=== PATIENT | female | born 1950 | race Caucasian/White ===

== ENCOUNTER 2023-05-21 10:37 | Inpatient (IN) ==
[2023-05-21 13:59] LABS: ABS Basophils 0.1 10^3/uL (0.0-0.1); ABS Eosinophils 0.1 10^3/uL (0.0-0.5); ABS Lymphocytes 1.3 10^3/uL (1.0-4.8); ABS Monocytes 0.6 10^3/uL (0.0-0.9); ABS Nucleated RBC 0.01 10^3/ul; Hematocrit 32.9 % (35-45); Hemoglobin 10.9 g/dL (11.5-14.3); Lymphocyte % 21.8 %; Mean Corpuscular Hemoglobin 31.9 pg (27-33); Mean Corpuscular Hgb Conc 33.3 g/dL (31-36); Mean Corpuscular Volume 95.7 fL (80-97); Mean Platelet Volume 6.9 fL (7.5-11.2); Nucleated Red Blood Cells % 0.1 %/100WBC (0.0-0.8); Platelet Count 326 10^3/uL (150-450); Red Blood Count 3.43 10^6/uL (3.63-4.92); Red Cell Distribution Width 15.8 % (12-17); White Blood Count 6.2 10^3/uL (3.8-11.8)
[2023-05-21] MEDS ORDERED: Vancomycin 1,500 MG in NS 0.9% 250 ml 250 ML IVPB SCH (14:00)
[2023-05-21 14:14] LABS: Activated Partial Thrombo Time 29.3 seconds (26.0-38.0); INR 0.95 (0.83-1.13)
[2023-05-21 14:23] LABS: Albumin 4.2 g/dL (3.2-5.2); Albumin/Globulin Ratio 1.1 (1-3); C Reactive Protein 28.27 mg/L (<8.01); Calcium 10.4 mg/dL (8.6-10.3); Creatinine, Serum 3.71 mg/dL (0.51-0.95); Globulin 3.7 g/dL (2-4); Potassium 3.6 mmol/L (3.5-5.0); Total Bilirubin 0.5 mg/dL (0.2-1.0); Total Protein 7.9 g/dL (6.4-8.9); eGFR CKD-EPI 12.5 (>60)
[2023-05-21 15:01] LABS: Urine Appearance Clear; Urine Bilirubin Negative (Negative); Urine Blood Negative (Negative); Urine Color Yellow; Urine Glucose Negative (Negative); Urine Ketones Negative (Negative); Urine Nitrite Negative (Negative); Urine Protein 1+ (>=30 mg/dL) (Negative); Urine Specific Gravity 1.021 (1.002-1.030); Urine Urobilinogen Negative (Negative)
[2023-05-21] MEDS: cefTRIAXone 2 gm/50 mL D5W 2 GM/50 ML BAG IV ONE (15:05)
[2023-05-21 15:13] LABS: Urine Bacteria Absent /HPF (Absent); Urine Red Blood Cell Trace(0-2/hpf) /HPF (0-Trace); Urine Squamous Epithelial Cell Present /HPF (Absent); Urine White Blood Cell Trace(0-5/hpf) /HPF (0-Trace)
[2023-05-21 15:46] LABS: High Sensitivity Troponin 1 Hr 60 pg/mL (<15)
[2023-05-21] MEDS: Vancomycin 1,500 MG in NS 0.9% 250 ml 250 ML IVPB ONE (16:43)
[2023-05-21] MEDS ORDERED: Al Hydrox/Mg Hydrox/Simet LIQ 30 ML UDC PO PRN (16:45)
[2023-05-21] MEDS ORDERED: Magnesium Hydroxide LIQ 30 ML UDC PO PRN (16:45)
[2023-05-21] MEDS ORDERED: Polyethylene Glycol 3350 17 GM PACKET PO PRN (16:45)
[2023-05-21] MEDS ORDERED: Ondansetron 4 mg VIAL 2 MG/ML 2 ml VIAL IV PRN (16:45)
[2023-05-21] MEDS ORDERED: Senna TAB 8.6 mg TAB PO PRN (16:45)
[2023-05-21] MEDS ORDERED: Vancomycin per Pharmacy 1 EA NOTE FOLLOW UP SCH (17:00)
[2023-05-21] MEDS: Enoxaparin 30 MG/0.3 ML SYR SUBCUT ONE (19:16)
[2023-05-21] MEDS: Cefepime 1 GM in Dextrose 1 GM/50 ML BAG IV SCH (19:17)
[2023-05-21] MEDS: metroNIDAZOLE IV 500 MG/100ML 500 MG/100 ML BAG IVPB SCH (19:33)
[2023-05-21] MEDS ORDERED: Albumin Human 25% 25 GM/100 ML BTL IV PRN (21:40)
[2023-05-21] MEDS ORDERED: NS 0.9% 1000 ml BAG 200 ML IV PRN (21:40)
[2023-05-21] MEDS ORDERED: NS 0.9% 1000 ml BAG 100 ML IV PRN (21:40)
[2023-05-21] MEDS: Enoxaparin 40 MG/0.4 ML SYR SUBCUT SCH (22:08)
[2023-05-22] MEDS: metroNIDAZOLE IV 500 MG/100ML 500 MG/100 ML BAG IVPB SCH ×2 (05:17→05:25)
[2023-05-22 06:39] LABS: ABS Basophils 0.1 10^3/uL (0.0-0.1); ABS Eosinophils 0.1 10^3/uL (0.0-0.5); ABS Lymphocytes 1.1 10^3/uL (1.0-4.8); ABS Monocytes 0.5 10^3/uL (0.0-0.9); ABS Neutrophils 3.2 10^3/uL (1.5-7.6); ABS Nucleated RBC 0.01 10^3/ul; Eosinophil % 2.9 %; Hematocrit 26.4 % (35-45); Lymphocyte % 22.1 %; Mean Corpuscular Hemoglobin 32.6 pg (27-33); Mean Corpuscular Volume 95.7 fL (80-97); Mean Platelet Volume 6.7 fL (7.5-11.2); Nucleated Red Blood Cells % 0.1 %/100WBC (0.0-0.8); Platelet Count 264 10^3/uL (150-450); Red Blood Count 2.75 10^6/uL (3.63-4.92); Red Cell Distribution Width 15.6 % (12-17)
[2023-05-22 06:50] LABS: Calcium 9.4 mg/dL (8.6-10.3); Creatinine, Serum 3.95 mg/dL (0.51-0.95); Magnesium 1.9 mg/dL (1.9-2.7); Potassium 3.6 mmol/L (3.5-5.0); eGFR CKD-EPI 11.6 (>60)
[2023-05-22 06:54] LABS: Vancomycin Random 16.7 mcg/mL
[2023-05-22] MEDS: Vancomycin Random Level NOTE FOLLOW UP ONE (06:55)
[2023-05-22] MEDS: Aspirin EC 81 mg TAB.EC (enteric coated) PO SCH (09:06)
[2023-05-22 10:53] LABS: Hepatitis B Surface Antigen Nonreactive (Nonreactive)
[2023-05-22] MEDS: Heparin 1,000 UNIT/ML 10 ml (10,000 UNITS) CATHLAB/DIALYSIS DIALYSIS PRN (13:45)
[2023-05-22] MEDS ORDERED: cefTRIAXone 1 gm/50 mL D5W 1 GM/50 ML BAG IV SCH (15:00)
[2023-05-22] MEDS: Vancomycin 750 MG in NS 0.9% 250 ML IVPB ONE (18:02)
[2023-05-22] MEDS: Enoxaparin 30 MG/0.3 ML SYR SUBCUT SCH (20:24)
[2023-05-23 06:18] LABS: Hematocrit 26.6 % (35-45); Hemoglobin 9.1 g/dL (11.5-14.3); Mean Corpuscular Hemoglobin 32.6 pg (27-33); Mean Corpuscular Hgb Conc 34.1 g/dL (31-36); Mean Corpuscular Volume 95.7 fL (80-97); Mean Platelet Volume 7.1 fL (7.5-11.2); Platelet Count 282 10^3/uL (150-450); Red Blood Count 2.78 10^6/uL (3.63-4.92); Red Cell Distribution Width 15.3 % (12-17); White Blood Count 4.3 10^3/uL (3.8-11.8)
[2023-05-23 06:38] LABS: Calcium 9.5 mg/dL (8.6-10.3); Creatinine, Serum 2.84 mg/dL (0.51-0.95); Magnesium 1.7 mg/dL (1.9-2.7); Potassium 3.7 mmol/L (3.5-5.0); eGFR CKD-EPI 17.2 (>60)
[2023-05-23] MEDS: Potassium Chlor 20 meq TAB.ER PO ONE (09:50)
[2023-05-23] MEDS: Magnesium Sulf 4 GM/100 ML IV 4,000 MG/100 ML BAG IVPB ONE (09:56)
[2023-05-23 18:19] VITALS: BP 126/56
[2023-05-24] MEDS ORDERED: Vancomycin Random Level NOTE FOLLOW UP ONE (06:00)
== END 2023-05-23 18:55 | disposition home or self-care (01) | DRG 638 ==
LOC: ED 10:37 → MED 16:45 → EDHOLD 16:45 → SUATTDRO 16:45 → MED 21:23
PROVIDERS: ADMIT Hospitalist; ATTEND Internal Medicine

== ENCOUNTER 2023-07-28 11:06 | Inpatient (IN) ==
[2023-07-28 12:54] LABS: ABS Basophils 0.1 10^3/uL (0.0-0.1); ABS Lymphocytes 0.8 10^3/uL (1.0-4.8); ABS Monocytes 1.1 10^3/uL (0.0-0.9); ABS Neutrophils 10.4 10^3/uL (1.5-7.6); ABS Nucleated RBC 0.01 10^3/ul; Eosinophil % 0.2 %; Hematocrit 30.3 % (35-45); Hemoglobin 10.2 g/dL (11.5-14.3); Lymphocyte % 6.2 %; Mean Corpuscular Hemoglobin 32.3 pg (27-33); Mean Corpuscular Hgb Conc 33.5 g/dL (31-36); Mean Corpuscular Volume 96.5 fL (80-97); Mean Platelet Volume 6.8 fL (7.5-11.2); Platelet Count 293 10^3/uL (150-450); Red Blood Count 3.14 10^6/uL (3.63-4.92); Red Cell Distribution Width 17.4 % (12-17); Venous Bicarbonate HCO3 24.8 mmol/L (24-28); White Blood Count 12.4 10^3/uL (3.8-11.8)
[2023-07-28 13:06] LABS: INR 1.13 (0.83-1.13)
[2023-07-28] MEDS: Acetaminophen IV 1 GM/100ML 1,000 MG/100 ML BAG IV ONE (13:18)
[2023-07-28] MEDS: Lactated Ringers 1000 ml BAG 1,000 ML IV ONE (13:29)
[2023-07-28 13:38] LABS: Albumin 3.7 g/dL (3.2-5.2); C Reactive Protein 349.19 mg/L (<8.01); Calcium 9.9 mg/dL (8.6-10.3); Creatinine, Serum 3.21 mg/dL (0.51-0.95); Globulin 3.7 g/dL (2-4); Phosphorus 2.9 mg/dL (2.5-5.0); Potassium 3.3 mmol/L (3.5-5.0); Total Bilirubin 0.6 mg/dL (0.2-1.0); Total Protein 7.4 g/dL (6.4-8.9); eGFR CKD-EPI 14.8 (>60)
[2023-07-28] MEDS: Azithromycin 500 mg/250 ml NS 500 MG/250 ML BAG IVPB ONE (13:47)
[2023-07-28 14:50] LABS: High Sensitivity Troponin 1 Hr 53 pg/mL (<15)
[2023-07-28] MEDS ORDERED: Albumin Human 25% 25 GM/100 ML BTL IV PRN (15:01)
[2023-07-28] MEDS ORDERED: NS 0.9% 1000 ml BAG 200 ML IV PRN (15:01)
[2023-07-28] MEDS ORDERED: NS 0.9% 1000 ml BAG 100 ML IV PRN (15:01)
[2023-07-28] MEDS: cefTRIAXone 1 gm/50 mL D5W 1 GM/50 ML BAG IV ONE (15:24)
[2023-07-28] MEDS ORDERED: Heparin 5000 UNITS/ML 1 mL VIAL SUBCUT SCH (21:00)
[2023-07-28] MEDS: Enoxaparin 30 MG/0.3 ML SYR SUBCUT SCH (21:21)
[2023-07-28 22:58] LABS: Urine Appearance Clear; Urine Bilirubin Negative (Negative); Urine Blood Negative (Negative); Urine Color Yellow; Urine Glucose Negative (Negative); Urine Ketones Negative (Negative); Urine Nitrite Negative (Negative); Urine Protein 1+ (>=30 mg/dL) (Negative); Urine Specific Gravity 1.026 (1.002-1.030); Urine Urobilinogen Negative (Negative)
[2023-07-28 23:27] LABS: Urine Bacteria Absent /HPF (Absent); Urine Red Blood Cell Absent /HPF (0-Trace); Urine Squamous Epithelial Cell Present /HPF (Absent); Urine White Blood Cell Absent /HPF (0-Trace)
[2023-07-29 00:13] LABS: Hepatitis B Surface Antigen Nonreactive (Nonreactive)
[2023-07-29 00:30] LABS: Hepatitis B Surface Ab Immune (Immune)
[2023-07-29] MEDS ORDERED: Dextrose 50% Syringe 50 ml 25 GM/50 ML SYRINGE IV PUSH PRN (03:58)
[2023-07-29 06:18] LABS: Hematocrit 25.9 % (35-45); Hemoglobin 8.7 g/dL (11.5-14.3); Mean Corpuscular Hemoglobin 32.4 pg (27-33); Mean Corpuscular Hgb Conc 33.4 g/dL (31-36); Mean Platelet Volume 6.9 fL (7.5-11.2); Platelet Count 261 10^3/uL (150-450); Red Blood Count 2.67 10^6/uL (3.63-4.92); Red Cell Distribution Width 17.3 % (12-17); White Blood Count 10.8 10^3/uL (3.8-11.8)
[2023-07-29 07:05] LABS: Calcium 9.2 mg/dL (8.6-10.3); Creatinine, Serum 4.3 mg/dL (0.51-0.95); Potassium 3.5 mmol/L (3.5-5.0); eGFR CKD-EPI 10.4 (>60)
[2023-07-29] MEDS: Aspirin EC 81 mg TAB.EC (enteric coated) PO SCH (07:46)
[2023-07-29] MEDS: Heparin 1,000 UNIT/ML 10 ml (10,000 UNITS) CATHLAB/DIALYSIS DIALYSIS PRN (13:25)
[2023-07-29] MEDS ORDERED: Lidocaine 2.5%/Prilocain 2.5% 5 GM TUBE TOPICAL SCH (15:00)
[2023-07-29] MEDS: Azithromycin 500 mg/250 ml NS 500 MG/250 ML BAG IVPB SCH (18:11)
[2023-07-29] MEDS: Pentafluoroprop/Tetrafluoro 1 SPRAY TOP.SPRAY TOPICAL SCH (18:13)
[2023-07-29] MEDS: cefTRIAXone 1 gm/50 mL D5W 1 GM/50 ML BAG IV SCH (20:32)
[2023-07-29] MEDS: cefTRIAXone 1 GM ONETIME (ADVAN) IVPB ONE (20:40)
[2023-07-30 06:42] LABS: ABS Eosinophils 0.1 10^3/uL (0.0-0.5); ABS Lymphocytes 0.6 10^3/uL (1.0-4.8); ABS Nucleated RBC 0.01 10^3/ul; Eosinophil % 0.6 %; Hematocrit 26.4 % (35-45); Hemoglobin 8.9 g/dL (11.5-14.3); Lymphocyte % 5.9 %; Mean Corpuscular Hemoglobin 32.6 pg (27-33); Mean Corpuscular Hgb Conc 33.7 g/dL (31-36); Mean Platelet Volume 6.8 fL (7.5-11.2); Nucleated Red Blood Cells % 0.1 %/100WBC (0.0-0.8); Platelet Count 325 10^3/uL (150-450); Red Blood Count 2.72 10^6/uL (3.63-4.92); Red Cell Distribution Width 17.2 % (12-17); White Blood Count 10.8 10^3/uL (3.8-11.8)
[2023-07-30 06:55] LABS: Calcium 8.8 mg/dL (8.6-10.3); Creatinine, Serum 2.66 mg/dL (0.51-0.95); Potassium 3.4 mmol/L (3.5-5.0); eGFR CKD-EPI 18.5 (>60)
[2023-07-30] MEDS: Potassium Chlor 20 meq TAB.ER PO ONE (09:17)
[2023-07-30 13:28] VITALS: BP 95/36
[2023-07-30] MEDS ORDERED: cefTRIAXone 1 gm/50 mL D5W 1 GM/50 ML BAG IV SCH (21:00)
== END 2023-07-30 16:50 | disposition home or self-care (01) | DRG 871 ==
LOC: ED 11:06 → EDHOLD 11:06 → SUATTDRO 15:27 → MED 07-29 10:20
PROVIDERS: ADMIT Student in an Organized Health Care Education/Training Program; ATTEND Internal Medicine

== ENCOUNTER 2023-08-05 10:20 | Inpatient (IN) ==
[2023-08-05] MEDS ORDERED: Albuterol/Ipratropium NEB.SOL (2.5/0.5 MG) 3 ML NEB.SOLN ONE (10:48)
[2023-08-05 11:15] LABS: Hematocrit 31.7 % (35-45); Hemoglobin 9.9 g/dL (11.5-14.3); Mean Corpuscular Hemoglobin 30.8 pg (27-33); Mean Corpuscular Hgb Conc 31.2 g/dL (31-36); Mean Corpuscular Volume 98.6 fL (80-97); Mean Platelet Volume 6.9 fL (7.5-11.2); Platelet Count 663 10^3/uL (150-450); Red Blood Count 3.22 10^6/uL (3.63-4.92); Red Cell Distribution Width 18.4 % (12-17); White Blood Count 29.1 10^3/uL (3.8-11.8)
[2023-08-05 12:17] LABS: Albumin 3.3 g/dL (3.2-5.2); Albumin/Globulin Ratio 0.9 (1-3); C Reactive Protein 113.07 mg/L (<8.01); Calcium 9.8 mg/dL (8.6-10.3); Creatinine, Serum 7.77 mg/dL (0.51-0.95); Globulin 3.6 g/dL (2-4); Potassium 4.8 mmol/L (3.5-5.0); Total Bilirubin 0.5 mg/dL (0.2-1.0); Total Protein 6.9 g/dL (6.4-8.9); eGFR CKD-EPI 5.1 (>60)
[2023-08-05 12:24] LABS: ABS Basophils 0.2 10^3/uL (0.0-0.1); ABS Lymphocytes 1.6 10^3/uL (1.0-4.8); ABS Monocytes 1.5 10^3/uL (0.0-0.9); ABS Neutrophils 25.9 10^3/uL (1.5-7.6); ABS Nucleated RBC 0.02 10^3/ul; Lymphocyte % 5.4 %; Nucleated Red Blood Cells % 0.1 %/100WBC (0.0-0.8)
[2023-08-05 12:37] LABS: High Sensitivity Troponin 1 Hr 48 pg/mL (<15)
[2023-08-05] MEDS ORDERED: NS 0.9% 1000 ml BAG 100 ML IV PRN (13:04)
[2023-08-05] MEDS ORDERED: NS 0.9% 1000 ml BAG 200 ML IV PRN (13:04)
[2023-08-05] MEDS: Cefepime 1 GM in Dextrose 1 GM/50 ML BAG IV ONE (13:38)
[2023-08-05] MEDS: Heparin 1,000 UNIT/ML 10 ml (10,000 UNITS) CATHLAB/DIALYSIS DIALYSIS PRN (14:39)
[2023-08-05] MEDS: Albumin Human 25% 25 GM/100 ML BTL IV PRN (15:17)
[2023-08-05] MEDS ORDERED: Dextrose 50% Syringe 50 ml 25 GM/50 ML SYRINGE IV PUSH PRN (17:38)
[2023-08-05] MEDS: Heparin 5000 UNITS/ML 1 mL VIAL SUBCUT SCH (20:10)
[2023-08-05] MEDS ORDERED: Vancomycin per Pharmacy 1 EA NOTE FOLLOW UP PRN (22:34)
[2023-08-05] MEDS: Iodixanol (CONTRAST) 320 MG/ML 100 ML SDV IV ONE (23:42)
[2023-08-06] MEDS: Vancomycin 1,250 MG in NS 0.9% 250 ml 250 ML IVPB ONE (00:02)
[2023-08-06] MEDS: Gadoteridol (CONTRAST) 279.3 MG/ML 10 ML IV ONE (00:19)
[2023-08-06] MEDS: Ondansetron 4 mg VIAL 2 MG/ML 2 ml VIAL IV PRN (03:55)
[2023-08-06 06:40] LABS: ABS Lymphocytes 0.9 10^3/uL (1.0-4.8); ABS Monocytes 1.1 10^3/uL (0.0-0.9); ABS Neutrophils 11.5 10^3/uL (1.5-7.6); ABS Nucleated RBC 0.01 10^3/ul; Eosinophil % 0.1 %; Hematocrit 24.4 % (35-45); Lymphocyte % 6.4 %; Mean Corpuscular Hgb Conc 32.8 g/dL (31-36); Mean Corpuscular Volume 94.6 fL (80-97); Mean Platelet Volume 6.2 fL (7.5-11.2); Nucleated Red Blood Cells % 0.1 %/100WBC (0.0-0.8); Platelet Count 432 10^3/uL (150-450); Red Blood Count 2.58 10^6/uL (3.63-4.92); Red Cell Distribution Width 17.4 % (12-17); White Blood Count 13.5 10^3/uL (3.8-11.8)
[2023-08-06] MEDS ORDERED: Vancomycin per Pharmacy 1 EA NOTE FOLLOW UP SCH (08:00)
[2023-08-06] MEDS: Pentafluoroprop/Tetrafluoro 1 SPRAY TOP.SPRAY TOPICAL PRN (08:20)
[2023-08-06] MEDS: Pentafluoroprop/Tetrafluoro 1 SPRAY TOP.SPRAY TOPICAL ONE (08:20)
[2023-08-06 09:41] LABS: Hepatitis B Surface Antigen Nonreactive (Nonreactive)
[2023-08-06 09:58] LABS: Hepatitis B Surface Ab Immune (Immune)
[2023-08-06 10:31] LABS: Albumin 3.5 g/dL (3.2-5.2); Albumin/Globulin Ratio 1.3 (1-3); C Reactive Protein 81.65 mg/L (<8.01); Calcium 8.4 mg/dL (8.6-10.3); Creatinine, Serum 3.4 mg/dL (0.51-0.95); Globulin 2.8 g/dL (2-4); Potassium 3.3 mmol/L (3.5-5.0); Total Bilirubin 0.7 mg/dL (0.2-1.0); Total Protein 6.3 g/dL (6.4-8.9); Vancomycin Random 19.4 mcg/mL; eGFR CKD-EPI 13.8 (>60)
[2023-08-06] MEDS: Senna TAB 8.6 mg TAB PO SCH (12:05)
[2023-08-06] MEDS: Aspirin EC 81 mg TAB.EC (enteric coated) PO SCH (13:08)
[2023-08-06] MEDS: Cefepime 1 GM in Dextrose 1 GM/50 ML BAG IV SCH (13:17)
[2023-08-06] MEDS: Vancomycin 750 MG in NS 0.9% 250 ML IVPB ONE (17:45)
[2023-08-06] MEDS ORDERED: Vancomycin Random Level NOTE FOLLOW UP ONE (23:00)
[2023-08-07 08:15] LABS: ABS Lymphocytes 1.1 10^3/uL (1.0-4.8); ABS Nucleated RBC 0.03 10^3/ul; Eosinophil % 0.1 %; Hematocrit 23.7 % (35-45); Hemoglobin 7.7 g/dL (11.5-14.3); Lymphocyte % 8.1 %; Mean Corpuscular Hemoglobin 31.5 pg (27-33); Mean Corpuscular Hgb Conc 32.4 g/dL (31-36); Mean Corpuscular Volume 97.3 fL (80-97); Mean Platelet Volume 6.9 fL (7.5-11.2); Nucleated Red Blood Cells % 0.2 %/100WBC (0.0-0.8); Platelet Count 369 10^3/uL (150-450); Red Blood Count 2.44 10^6/uL (3.63-4.92); Red Cell Distribution Width 18.1 % (12-17); White Blood Count 14.2 10^3/uL (3.8-11.8)
[2023-08-07 08:45] LABS: % Iron Saturation 85 % (15-55); .Transferrin < 75 mg/dL (203-362); Anion Gap 20 mmol/L (2-16); Blood Urea Nitrogen 20 mg/dL (6-24); CO2 Carbon Dioxide 22 mmol/L (22-32); Calcium 9.2 mg/dL (8.6-10.3); Chloride 98 mmol/L (101-111); Creatinine, Serum 2.58 mg/dL (0.51-0.95); Glucose 73 mg/dL (70-100); Iron 89 ug/dL (50-212); Magnesium 1.9 mg/dL (1.9-2.7); Potassium 3.3 mmol/L (3.5-5.0); Sodium 140 mmol/L (135-145); Total Iron Binding Capacity 105 mcg/dL (250-450); Unsaturated Iron Binding 16 ug/dL; Vancomycin Random 18.9 mcg/mL; eGFR CKD-EPI 19.2 (>60)
[2023-08-07] MEDS: KCL 20 MEQ/100 ML IVPREMIX 20 MEQ/100 ML BAG IV ONE (09:16)
[2023-08-07] MEDS ORDERED: KCL 20 MEQ/100 ML IVPREMIX 20 MEQ/100 ML BAG IV ONE (12:00)
[2023-08-07 12:11] LABS: Ferritin 39607.7 ng/mL (11-307)
[2023-08-07] MEDS ORDERED: Lidocaine 2% PF 5 ML VIAL ONE (14:56)
[2023-08-07] MEDS ORDERED: Midazolam 2 mg/2 ml VIAL 1 mg/ml 2 ml VIAL (2 mg) ONE (14:56)
[2023-08-07] MEDS ORDERED: fentaNYL 100 mcg/2 ml 50 MCG/ML VIAL ONE (14:56)
[2023-08-07] MEDS ORDERED: Propofol 10 MG/ML 20 ML BTL ONE ×2 (14:56→16:20)
[2023-08-07] MEDS ORDERED: Famotidine IV 10 MG/ML 2 ml VIAL (20 mg) ONE (15:49)
[2023-08-07] MEDS: Famotidine IV 10 MG/ML 2 ml VIAL (20 mg) IV SLOW PU ONE (15:57)
[2023-08-07] MEDS ORDERED: Bupivacaine 0.25% SDV 30 ML ONE (16:25)
[2023-08-07 17:05] LABS: Folate 4.91 ng/mL (5.90-24.80)
[2023-08-07 17:07] LABS: Vitamin B12 1261 pg/mL (180-914)
[2023-08-07] MEDS: Vancomycin Random Level NOTE FOLLOW UP ONE (20:32)
[2023-08-08 06:14] LABS: ABS Lymphocytes 0.7 10^3/uL (1.0-4.8); ABS Monocytes 0.9 10^3/uL (0.0-0.9); ABS Nucleated RBC 0.04 10^3/ul; Eosinophil % 0.1 %; Hematocrit 26.6 % (35-45); Hemoglobin 8.6 g/dL (11.5-14.3); Lymphocyte % 4.5 %; Mean Corpuscular Hemoglobin 31.3 pg (27-33); Mean Corpuscular Hgb Conc 32.3 g/dL (31-36); Mean Corpuscular Volume 96.9 fL (80-97); Mean Platelet Volume 6.7 fL (7.5-11.2); Nucleated Red Blood Cells % 0.3 %/100WBC (0.0-0.8); Platelet Count 342 10^3/uL (150-450); Red Blood Count 2.75 10^6/uL (3.63-4.92); Red Cell Distribution Width 18.2 % (12-17); White Blood Count 16.7 10^3/uL (3.8-11.8)
[2023-08-08 06:33] LABS: Calcium 9.3 mg/dL (8.6-10.3); Creatinine, Serum 4.03 mg/dL (0.51-0.95); Potassium 3.3 mmol/L (3.5-5.0); eGFR CKD-EPI 11.2 (>60)
[2023-08-08] MEDS: Potassium EFFERVES 25 meq TAB PO ONE (09:40)
[2023-08-08] MEDS ORDERED: Polyethylene Glycol 3350 17 GM PACKET PO PRN (14:43)
[2023-08-08] MEDS: Vancomycin 750 MG in NS 0.9% 250 ML IVPB ONE (15:39)
[2023-08-09 06:28] LABS: ABS Lymphocytes 0.6 10^3/uL (1.0-4.8); ABS Monocytes 0.7 10^3/uL (0.0-0.9); ABS Neutrophils 9.2 10^3/uL (1.5-7.6); ABS Nucleated RBC 0.01 10^3/ul; Eosinophil % 0.5 %; Hematocrit 24.6 % (35-45); Hemoglobin 8.2 g/dL (11.5-14.3); Lymphocyte % 5.5 %; Mean Corpuscular Hgb Conc 33.2 g/dL (31-36); Mean Corpuscular Volume 96.3 fL (80-97); Mean Platelet Volume 6.9 fL (7.5-11.2); Nucleated Red Blood Cells % 0.1 %/100WBC (0.0-0.8); Platelet Count 299 10^3/uL (150-450); Red Blood Count 2.56 10^6/uL (3.63-4.92); White Blood Count 10.5 10^3/uL (3.8-11.8)
[2023-08-09 06:34] LABS: Creatinine, Serum 2.6 mg/dL (0.51-0.95); Magnesium 1.7 mg/dL (1.9-2.7); Potassium 3.4 mmol/L (3.5-5.0); Vancomycin Random 18.9 mcg/mL
[2023-08-09] MEDS: Vancomycin Random Level NOTE FOLLOW UP ONE (08:29)
[2023-08-09] MEDS: Magnesium Sulfate 2 gm BAG 2 GM/50 ML BAG IVPB ONE (08:35)
[2023-08-09] MEDS: Vancomycin 750 MG in NS 0.9% 250 ML IVPB ONE (15:30)
[2023-08-10] MEDS ORDERED: Magnesium Hydroxide LIQ 30 ML UDC PO PRN (09:46)
[2023-08-10] MEDS ORDERED: Polyethylene Glycol 3350 17 GM PACKET PO PRN (09:46)
[2023-08-10] MEDS: Magnesium Hydroxide LIQ 30 ML UDC PO SCH (21:30)
[2023-08-11 08:34] LABS: ABS Basophils 0.1 10^3/uL (0.0-0.1); ABS Eosinophils 0.1 10^3/uL (0.0-0.5); ABS Lymphocytes 0.7 10^3/uL (1.0-4.8); ABS Neutrophils 8.1 10^3/uL (1.5-7.6); Hemoglobin 8.1 g/dL (11.5-14.3); Lymphocyte % 7.4 %; Mean Corpuscular Hemoglobin 31.9 pg (27-33); Mean Corpuscular Hgb Conc 32.4 g/dL (31-36); Mean Corpuscular Volume 98.6 fL (80-97); Mean Platelet Volume 6.8 fL (7.5-11.2); Platelet Count 288 10^3/uL (150-450); Red Blood Count 2.54 10^6/uL (3.63-4.92); Red Cell Distribution Width 18.6 % (12-17); White Blood Count 9.9 10^3/uL (3.8-11.8)
[2023-08-11 09:06] LABS: Calcium 8.7 mg/dL (8.6-10.3); Creatinine, Serum 3.55 mg/dL (0.51-0.95); Magnesium 1.9 mg/dL (1.9-2.7); Potassium 4.1 mmol/L (3.5-5.0); eGFR CKD-EPI 13.1 (>60)
[2023-08-11 09:31] LABS: C Reactive Protein 137.19 mg/L (<8.01)
[2023-08-12 04:56] LABS: ABS Eosinophils 0.1 10^3/uL (0.0-0.5); ABS Lymphocytes 0.7 10^3/uL (1.0-4.8); ABS Neutrophils 7.3 10^3/uL (1.5-7.6); ABS Nucleated RBC 0.01 10^3/ul; Eosinophil % 1.2 %; Hematocrit 25.7 % (35-45); Hemoglobin 8.5 g/dL (11.5-14.3); Lymphocyte % 7.9 %; Mean Corpuscular Hemoglobin 32.4 pg (27-33); Mean Corpuscular Hgb Conc 32.9 g/dL (31-36); Mean Corpuscular Volume 98.4 fL (80-97); Nucleated Red Blood Cells % 0.1 %/100WBC (0.0-0.8); Platelet Count 281 10^3/uL (150-450); Red Blood Count 2.61 10^6/uL (3.63-4.92); Red Cell Distribution Width 18.5 % (12-17); White Blood Count 9.3 10^3/uL (3.8-11.8)
[2023-08-12 05:08] LABS: Calcium 8.9 mg/dL (8.6-10.3); Creatinine, Serum 4.51 mg/dL (0.51-0.95); Magnesium 1.9 mg/dL (1.9-2.7); Potassium 4.4 mmol/L (3.5-5.0); Vancomycin Random 20.6 mcg/mL; eGFR CKD-EPI 9.8 (>60)
[2023-08-12] MEDS: Vancomycin Random Level NOTE FOLLOW UP ONE (08:25)
[2023-08-12] MEDS: Vancomycin 750 MG in NS 0.9% 250 ML IVPB ONE (17:32)
[2023-08-13 07:47] LABS: ABS Eosinophils 0.1 10^3/uL (0.0-0.5); ABS Lymphocytes 0.6 10^3/uL (1.0-4.8); ABS Monocytes 1.1 10^3/uL (0.0-0.9); ABS Neutrophils 5.8 10^3/uL (1.5-7.6); Eosinophil % 0.9 %; Hematocrit 26.3 % (35-45); Hemoglobin 8.5 g/dL (11.5-14.3); Lymphocyte % 8.4 %; Mean Corpuscular Hemoglobin 31.8 pg (27-33); Mean Corpuscular Hgb Conc 32.2 g/dL (31-36); Mean Corpuscular Volume 98.8 fL (80-97); Mean Platelet Volume 6.9 fL (7.5-11.2); Nucleated Red Blood Cells % 0.1 %/100WBC (0.0-0.8); Platelet Count 284 10^3/uL (150-450); Red Blood Count 2.66 10^6/uL (3.63-4.92); Red Cell Distribution Width 18.2 % (12-17); White Blood Count 7.7 10^3/uL (3.8-11.8)
[2023-08-13 08:32] LABS: Calcium 8.6 mg/dL (8.6-10.3); Creatinine, Serum 2.88 mg/dL (0.51-0.95); Potassium 3.6 mmol/L (3.5-5.0); eGFR CKD-EPI 16.8 (>60)
[2023-08-14 06:40] LABS: Calcium 8.8 mg/dL (8.6-10.3); Creatinine, Serum 3.71 mg/dL (0.51-0.95); Magnesium 1.8 mg/dL (1.9-2.7); Potassium 3.4 mmol/L (3.5-5.0); eGFR CKD-EPI 12.4 (>60)
[2023-08-14] MEDS: Vancomycin Random Level NOTE FOLLOW UP ONE (09:14)
[2023-08-14] MEDS: Magnesium Sulfate 2 gm BAG 2 GM/50 ML BAG IVPB ONE (13:11)
[2023-08-14] MEDS: Potassium Chlor 20 meq TAB.ER PO ONE (14:25)
[2023-08-14] MEDS: Vancomycin 750 MG in NS 0.9% 250 ML IVPB ONE (16:03)
[2023-08-15 05:44] LABS: ABS Eosinophils 0.1 10^3/uL (0.0-0.5); ABS Lymphocytes 0.7 10^3/uL (1.0-4.8); ABS Monocytes 1.2 10^3/uL (0.0-0.9); ABS Neutrophils 4.7 10^3/uL (1.5-7.6); Eosinophil % 0.8 %; Hemoglobin 8.5 g/dL (11.5-14.3); Lymphocyte % 10.8 %; Mean Corpuscular Hemoglobin 32.1 pg (27-33); Mean Corpuscular Hgb Conc 32.6 g/dL (31-36); Mean Corpuscular Volume 98.6 fL (80-97); Mean Platelet Volume 6.8 fL (7.5-11.2); Nucleated Red Blood Cells % 0.1 %/100WBC (0.0-0.8); Platelet Count 292 10^3/uL (150-450); Red Blood Count 2.64 10^6/uL (3.63-4.92); Red Cell Distribution Width 18.8 % (12-17); White Blood Count 6.7 10^3/uL (3.8-11.8)
[2023-08-15 06:04] VITALS: BP 124/54
[2023-08-15 06:10] LABS: Creatinine, Serum 2.82 mg/dL (0.51-0.95); Magnesium 2.1 mg/dL (1.9-2.7); Potassium 4.4 mmol/L (3.5-5.0); eGFR CKD-EPI 17.3 (>60)
[2023-08-16] MEDS ORDERED: Vancomycin Random Level NOTE FOLLOW UP ONE (06:00)
== END 2023-08-15 13:25 | DRG 853 ==
LOC: ED 10:20 → SUATTDRO 13:56 → EDHOLD 13:56 → MED 15:06
PROVIDERS: ADMIT Internal Medicine; ATTEND Internal Medicine

== ENCOUNTER 2023-10-02 10:45 | Inpatient (IN) ==
[~2023-10-02 10:45] MED LIST: Metoclopramide 5 MG/ML VIAL (10 mg) IV PRN; Naloxone 0.4 mg VIAL 0.4 mg/ml 1 ml VIAL IV PRN; Ondansetron 4 mg VIAL 2 MG/ML 2 ml VIAL IV PRN
[2023-10-02 13:27] LABS: Rapid COVID-19 Molecular Undetected (Undetected)
[2023-10-02] MEDS ORDERED: Propofol 10 MG/ML 20 ML BTL ONE (13:43)
[2023-10-02] MEDS ORDERED: fentaNYL 100 mcg/2 ml 50 MCG/ML VIAL ONE ×2 (13:43→18:45)
[2023-10-02] MEDS ORDERED: Midazolam 2 mg/2 ml VIAL 1 mg/ml 2 ml VIAL (2 mg) ONE (13:43)
[2023-10-02] MEDS ORDERED: Lidocaine 2% PF 5 ML VIAL ONE (13:43)
[2023-10-02] MEDS ORDERED: Buffered Lidocaine 1% SYRIN 1 ml ONE (13:54)
[2023-10-02] MEDS ORDERED: ceFAZolin 2 GM PREMIX 2 GM/50 ML BAG ONE (13:54)
[2023-10-02] MEDS: NS 0.45% 1000 ml BAG 1,000 ML IV SCH (14:42)
[2023-10-02 15:54] LABS: Calcium 9.9 mg/dL (8.6-10.3); Creatinine, Serum 2.99 mg/dL (0.51-0.95); Potassium 4.4 mmol/L (3.5-5.0); eGFR CKD-EPI 16.1 (>60)
[2023-10-02] MEDS ORDERED: Ondansetron 4 mg VIAL 2 MG/ML 2 ml VIAL ONE (16:21)
[2023-10-02] MEDS ORDERED: HYDROmorphone 0.5 MG/0.5 ML SYRINGE ONE ×2 (16:22→16:48)
[2023-10-02] MEDS ORDERED: NS 0.9% 1000 ml BAG 100 ML IV PRN (16:28)
[2023-10-02] MEDS ORDERED: NS 0.9% 1000 ml BAG 200 ML IV PRN (16:28)
[2023-10-02] MEDS ORDERED: Magnesium Hydroxide LIQ 30 ML UDC PO PRN (16:36)
[2023-10-02] MEDS ORDERED: Ondansetron ODT 4 mg TAB 4 MG TAB PO PRN (16:36)
[2023-10-02] MEDS ORDERED: Phenylephrine 40 mcg/mL 10mL (400mcg) SYRINGE ONE (16:37)
[2023-10-02] MEDS ORDERED: Glycopyrrolate IV 0.2 MG/ML 1 ML VIAL ONE (17:21)
[2023-10-02] MEDS ORDERED: Artificial Tear OPHTH.OINT 3.5 GM ONE (18:12)
[2023-10-02] MEDS: fentaNYL 100 mcg/2 ml 50 MCG/ML VIAL IV PRN (18:48)
[2023-10-02] MEDS: Acetaminophen IV 1 GM/100ML 1,000 MG/100 ML BAG IV ONE (20:34)
[2023-10-02] MEDS: Buffered Lidocaine 1% SYRIN 1 ml INTRADERM ONE (20:34)
[2023-10-02] MEDS: Scopolamine 1 mg/72hr PATCH TRANSDERM ONE (20:35)
[2023-10-02] MEDS: Lactated Ringers 1000 ml BAG 1,000 ML IV SCH ×2 (20:35→21:27)
[2023-10-02] MEDS: Magnesium Hydroxide LIQ 30 ML UDC PO SCH (21:28)
[2023-10-02] MEDS: Morphine 2 MG/ML SYRINGE IV PRN (22:24)
[2023-10-03 03:10] LABS: Hepatitis B Surface Ab Immune (Immune)
[2023-10-03 05:55] LABS: Hematocrit 28.1 % (35-45); Hemoglobin 9.3 g/dL (11.5-14.3); Mean Platelet Volume 6.7 fL (7.5-11.2); Platelet Count 220 10^3/uL (150-450)
[2023-10-03 06:26] LABS: Calcium 8.9 mg/dL (8.6-10.3); Creatinine, Serum 3.61 mg/dL (0.51-0.95); Potassium 4.2 mmol/L (3.5-5.0); eGFR CKD-EPI 12.8 (>60)
[2023-10-03] MEDS: Vitamin THERAPEUTIC TAB PO SCH (07:45)
[2023-10-03] MEDS: Albumin Human 25% 25 GM/100 ML BTL IV PRN (08:16)
[2023-10-03] MEDS: Heparin 1,000 UNIT/ML 10 ml (10,000 UNITS) CATHLAB/DIALYSIS DIALYSIS PRN (08:34)
[2023-10-03] MEDS: Morphine 2 MG/ML SYRINGE IV PRN (10:20)
[2023-10-03 11:44] LABS: Hepatitis B Surface Antigen Nonreactive (Nonreactive)
[2023-10-03] MEDS: Pentafluoroprop/Tetrafluoro 1 SPRAY TOP.SPRAY TOPICAL SCH (12:06)
[2023-10-03] MEDS: Dextrose 50% Syringe 50 ml 25 GM/50 ML SYRINGE IV PUSH PRN (12:42)
[2023-10-03] MEDS ORDERED: Vancomycin 500 MG in NS 0.9% 250 ml 250 ML IVPB ONE (12:56)
[2023-10-03] MEDS: Vancomycin 750 MG in NS 0.9% 250 ML IVPB ONE (13:28)
[2023-10-04 06:49] LABS: Hematocrit 28.2 % (35-45); Hemoglobin 9.3 g/dL (11.5-14.3); Mean Platelet Volume 6.7 fL (7.5-11.2); Platelet Count 208 10^3/uL (150-450)
[2023-10-04 10:07] LABS: ALT < 3 U/L (7-52); Albumin 2.7 g/dL (3.2-5.2); Alkaline Phosphatase 186 U/L (35-149); Anion Gap 11 mmol/L (2-16); Blood Urea Nitrogen 10 mg/dL (6-24); CO2 Carbon Dioxide 25 mmol/L (22-32); Calcium 9.1 mg/dL (8.6-10.3); Chloride 99 mmol/L (101-111); Creatinine, Serum 3.18 mg/dL (0.51-0.95); Globulin 2.6 g/dL (2-4); Glucose 126 mg/dL (70-100); Sodium 135 mmol/L (135-145); Total Bilirubin 0.5 mg/dL (0.2-1.0); Total Protein 5.3 g/dL (6.4-8.9); eGFR CKD-EPI 14.9 (>60)
[2023-10-04 11:44] LABS: Potassium Redraw 4.4 mmol/L (3.5-5.0)
[2023-10-04] MEDS: Ondansetron 4 mg VIAL 2 MG/ML 2 ml VIAL IV PRN (20:59)
[2023-10-05 06:43] LABS: Hematocrit 26.7 % (35-45); Hemoglobin 8.9 g/dL (11.5-14.3); Mean Platelet Volume 7.1 fL (7.5-11.2); Platelet Count 207 10^3/uL (150-450)
[2023-10-06 07:35] LABS: Hematocrit 28.4 % (35-45); Hemoglobin 9.2 g/dL (11.5-14.3); Mean Platelet Volume 6.9 fL (7.5-11.2); Platelet Count 213 10^3/uL (150-450)
[2023-10-06] MEDS: Lactulose 30 ml UDC PO PRN (07:53)
[2023-10-07 10:41] LABS: Hematocrit 27.7 % (35-45); Mean Platelet Volume 6.9 fL (7.5-11.2); Platelet Count 250 10^3/uL (150-450)
[2023-10-07 15:45] VITALS: BP 135/70
[2023-10-07 16:31] LABS: ABS Eosinophils 0.1 10^3/uL (0.0-0.5); ABS Lymphocytes 0.7 10^3/uL (1.0-4.8); ABS Monocytes 0.5 10^3/uL (0.0-0.9); ABS Neutrophils 2.8 10^3/uL (1.5-7.6); Eosinophil % 2.3 %; Hematocrit 30.2 % (35-45); Hemoglobin 10.1 g/dL (11.5-14.3); Lymphocyte % 16.6 %; Mean Corpuscular Hgb Conc 33.3 g/dL (31-36); Mean Corpuscular Volume 96.1 fL (80-97); Mean Platelet Volume 6.5 fL (7.5-11.2); Nucleated Red Blood Cells % 0.1 %/100WBC (0.0-0.8); Platelet Count 269 10^3/uL (150-450); Red Blood Count 3.14 10^6/uL (3.63-4.92); Red Cell Distribution Width 15.5 % (12-17)
[2023-10-07 17:04] LABS: Activated Partial Thrombo Time 25.5 seconds (26.0-38.0); INR 1.09 (0.83-1.13)
[2023-10-07 17:28] LABS: Creatinine, Serum 2.04 mg/dL (0.51-0.95); eGFR CKD-EPI 25.4 (>60)
[2023-10-07] MEDS ORDERED: Heparin 5000 UNITS/ML 1 mL VIAL SUBCUT SCH (21:00)
== END 2023-10-07 17:25 | DRG 617 ==
LOC: INTOOBSV 12:29 → AA 12:29 → SSU 16:36
PROVIDERS: ADMIT Orthopaedic Surgery; ATTEND Orthopaedic Surgery
PROC: O.ORAMP (2023-10-02 15:15)

== ENCOUNTER 2023-11-10 01:01 | Inpatient (IN) ==
[2023-11-10] MEDS: Lactated Ringers 1000 ml BAG 1,000 ML IV ONE ×2 (01:23→11:55)
[2023-11-10 01:30] LABS: ABS Lymphocytes 0.9 10^3/uL (1.0-4.8); ABS Monocytes 0.3 10^3/uL (0.0-0.9); Eosinophil % 0.6 %; Hematocrit 22.6 % (35-45); Hemoglobin 7.2 g/dL (11.5-14.3); Lymphocyte % 27.4 %; Mean Corpuscular Hemoglobin 33.2 pg (27-33); Mean Corpuscular Volume 103.8 fL (80-97); Mean Platelet Volume 8.2 fL (7.5-11.2); Nucleated Red Blood Cells % 0.1 %/100WBC (0.0-0.8); Platelet Count 153 10^3/uL (150-450); Red Blood Count 2.18 10^6/uL (3.63-4.92); Red Cell Distribution Width 19.9 % (12-17); White Blood Count 3.3 10^3/uL (3.8-11.8)
[2023-11-10 01:37] LABS: Activated Partial Thrombo Time 31.8 seconds (26.0-38.0); INR 1.55 (0.83-1.13)
[2023-11-10 01:55] LABS: High Sens Troponin Baseline 952 pg/mL (<15)
[2023-11-10 02:34] LABS: ALT 60 U/L (7-52); AST 82 U/L (13-39); Albumin 1.8 g/dL (3.2-5.2); Albumin/Globulin Ratio 0.7 (1-3); Alkaline Phosphatase 418 U/L (35-149); Anion Gap 10 mmol/L (2-16); Blood Urea Nitrogen 12 mg/dL (6-24); C Reactive Protein 29.37 mg/L (<8.01); CO2 Carbon Dioxide 24 mmol/L (22-32); Calcium 7.5 mg/dL (8.6-10.3); Chloride 96 mmol/L (101-111); Creatinine, Serum 3.08 mg/dL (0.51-0.95); Globulin 2.6 g/dL (2-4); Glucose 63 mg/dL (70-100); Potassium 4.2 mmol/L (3.5-5.0); Sodium 130 mmol/L (135-145); Total Bilirubin 0.9 mg/dL (0.2-1.0); Total Protein 4.4 g/dL (6.4-8.9); eGFR CKD-EPI 15.5 (>60)
[2023-11-10 03:09] LABS: ABS Lymphocytes 0.9 10^3/uL (1.0-4.8); ABS Monocytes 0.3 10^3/uL (0.0-0.9); ABS Neutrophils 2.1 10^3/uL (1.5-7.6); Eosinophil % 0.1 %; Hematocrit 21.6 % (35-45); Hemoglobin 6.8 g/dL (11.5-14.3); Lymphocyte % 26.1 %; Mean Corpuscular Hemoglobin 32.8 pg (27-33); Mean Corpuscular Hgb Conc 31.5 g/dL (31-36); Mean Corpuscular Volume 104.3 fL (80-97); Mean Platelet Volume 7.9 fL (7.5-11.2); Platelet Count 137 10^3/uL (150-450); Red Blood Count 2.07 10^6/uL (3.63-4.92); Red Cell Distribution Width 20.5 % (12-17); White Blood Count 3.3 10^3/uL (3.8-11.8)
[2023-11-10 03:33] LABS: High Sensitivity Troponin 1 Hr 881 pg/mL (<15)
[2023-11-10] MEDS: Piperacillin/Tazobac 3.375 BAG 3.375 GM/100 ML BAG IV ONE (04:10)
[2023-11-10] MEDS: Dextrose 50% Syringe 50 ml 25 GM/50 ML SYRINGE IV PUSH ONE (04:10)
[2023-11-10] MEDS: Norepinephrine 4 MG/250mL D5W 4,000 MCG/250 ML BAG IV SCH ×3 (04:17→13:27)
[2023-11-10] MEDS: Vancomycin 1,000 MG in NS 0.9% 250 ml 250 ML IVPB ONE (06:09)
[2023-11-10] MEDS: Sulfur Hexaflouride MICROSPHR 25 MG VIAL IV ONE (09:23)
[2023-11-10] MEDS ORDERED: Senna TAB 8.6 mg TAB PO PRN (09:58)
[2023-11-10] MEDS ORDERED: Polyethylene Glycol 3350 17 GM PACKET PO PRN (09:58)
[2023-11-10] MEDS ORDERED: Vancomycin per Pharmacy 1 EA NOTE FOLLOW UP SCH (10:00)
[2023-11-10] MEDS ORDERED: Zosyn per Pharmacy NOTE FOLLOW UP SCH (10:00)
[2023-11-10] MEDS ORDERED: Dextrose 50% Syringe 50 ml 25 GM/50 ML SYRINGE IV PUSH PRN (12:32)
[2023-11-10 13:03] LABS: % Iron Saturation 73 % (15-55); .Transferrin < 75 mg/dL (203-362); Iron 77 ug/dL (50-212); Total Iron Binding Capacity 105 mcg/dL (250-450); Unsaturated Iron Binding 28 ug/dL
[2023-11-10] MEDS: ZOSYN 3.375 GM Q12H per EXTENDED INFUSION IV SCH (13:23)
[2023-11-10 13:30] LABS: Folate 14.03 ng/mL (5.90-24.80)
[2023-11-10 13:31] LABS: Vitamin B12 1205 pg/mL (180-914)
[2023-11-10] MEDS ORDERED: NS 0.9% 1000 ml BAG 200 ML IV PRN (14:02)
[2023-11-10] MEDS ORDERED: Heparin 1,000 UNIT/ML 10 ml (10,000 UNITS) CATHLAB/DIALYSIS DIALYSIS PRN (14:02)
[2023-11-10] MEDS ORDERED: NS 0.9% 1000 ml BAG 100 ML IV PRN (14:02)
[2023-11-10 14:38] LABS: Ferritin 5190.3 ng/mL (11-307)
[2023-11-10 20:11] LABS: ABS Basophils 0.1 10^3/uL (0.0-0.1); ABS Eosinophils 0.1 10^3/uL (0.0-0.5); ABS Lymphocytes 1.4 10^3/uL (1.0-4.8); ABS Monocytes 0.8 10^3/uL (0.0-0.9); ABS Neutrophils 6.4 10^3/uL (1.5-7.6); ABS Nucleated RBC 0.01 10^3/ul; Eosinophil % 0.8 %; Hematocrit 30.3 % (35-45); Hemoglobin 9.8 g/dL (11.5-14.3); Lymphocyte % 16.3 %; Mean Corpuscular Hemoglobin 32.5 pg (27-33); Mean Corpuscular Hgb Conc 32.3 g/dL (31-36); Mean Corpuscular Volume 100.5 fL (80-97); Mean Platelet Volume 7.6 fL (7.5-11.2); Nucleated Red Blood Cells % 0.1 %/100WBC (0.0-0.8); Platelet Count 181 10^3/uL (150-450); Red Blood Count 3.01 10^6/uL (3.63-4.92); Red Cell Distribution Width 19.2 % (12-17); White Blood Count 8.8 10^3/uL (3.8-11.8)
[2023-11-10 20:34] LABS: High Sensitivity Troponin 3 Hr 1774 pg/mL (<15)
[2023-11-10 20:49] LABS: Albumin 1.8 g/dL (3.2-5.2); Albumin/Globulin Ratio 0.7 (1-3); Calcium 7.5 mg/dL (8.6-10.3); Creatinine, Serum 3.23 mg/dL (0.51-0.95); Globulin 2.7 g/dL (2-4); Magnesium 1.6 mg/dL (1.9-2.7); Potassium 4.1 mmol/L (3.5-5.0); Total Bilirubin 1.4 mg/dL (0.2-1.0); Total Protein 4.5 g/dL (6.4-8.9); eGFR CKD-EPI 14.7 (>60)
[2023-11-10] MEDS: Magnesium Sulfate 2 gm BAG 2 GM/50 ML BAG IVPB ONE (22:11)
[2023-11-10] MEDS: Heparin 5000 UNITS/ML 1 mL VIAL SUBCUT SCH (22:48)
[2023-11-10] MEDS: Magnesium Hydroxide LIQ 30 ML UDC PO SCH (22:49)
[2023-11-10] MEDS: Albumin Human 25% 25 GM/100 ML BTL IV PRN (23:33)
[2023-11-11] MEDS: Norepinephrine *QUAD STRENGTH* 16 mg/250 mL NS PREMIX (ICU ONLY) IV SCH (00:08)
[2023-11-11] MEDS: Albumin Human 5% 25 GM/500 ML BTL IV ONE (01:09)
[2023-11-11] MEDS: NS 0.9% 500 ml BAG 500 ML IV SCH (01:11)
[2023-11-11] MEDS: NS 0.9% 1000 ml BAG 1,000 ML IV ONE (03:19)
[2023-11-11 04:01] LABS: Hepatitis B Surface Antigen Nonreactive (Nonreactive)
[2023-11-11 04:19] LABS: Hepatitis B Surface Ab Immune (Immune)
[2023-11-11 05:37] LABS: ABS Lymphocytes 1.5 10^3/uL (1.0-4.8); ABS Neutrophils 5.9 10^3/uL (1.5-7.6); ABS Nucleated RBC 0.01 10^3/ul; Eosinophil % 0.6 %; Hematocrit 27.1 % (35-45); Hemoglobin 9.2 g/dL (11.5-14.3); Lymphocyte % 17.2 %; Mean Corpuscular Hemoglobin 33.5 pg (27-33); Mean Corpuscular Hgb Conc 34.1 g/dL (31-36); Mean Corpuscular Volume 98.3 fL (80-97); Mean Platelet Volume 7.6 fL (7.5-11.2); Nucleated Red Blood Cells % 0.1 %/100WBC (0.0-0.8); Platelet Count 167 10^3/uL (150-450); Red Blood Count 2.76 10^6/uL (3.63-4.92); Red Cell Distribution Width 19.8 % (12-17); White Blood Count 8.5 10^3/uL (3.8-11.8)
[2023-11-11 06:18] LABS: Albumin 2.3 g/dL (3.2-5.2); Calcium 8.2 mg/dL (8.6-10.3); Creatinine, Serum 3.26 mg/dL (0.51-0.95); Globulin 2.3 g/dL (2-4); Magnesium 2.1 mg/dL (1.9-2.7); Total Bilirubin 2.4 mg/dL (0.2-1.0); Total Protein 4.6 g/dL (6.4-8.9); Vancomycin Random 11.9 mcg/mL; eGFR CKD-EPI 14.5 (>60)
[2023-11-11] MEDS: Vancomycin Random Level NOTE FOLLOW UP ONE (10:38)
[2023-11-11] MEDS: Morphine 4 MG/ML VIAL (1 ml) IV ONE (10:57)
[2023-11-11] MEDS ORDERED: Atropine 1% (ORAL/SL) 15 ML BTL SL PRN (11:04)
[2023-11-11] MEDS: Morphine 4 MG/ML VIAL (1 ml) ONE (13:16)
[2023-11-11] MEDS: Morphine 2 MG/ML SYRINGE IV PRN (13:22)
[2023-11-11] MEDS: Scopolamine 1 mg/72hr PATCH TRANSDERM SCH (13:22)
[2023-11-11] MEDS ORDERED: LORazepam 2 mg VIAL 1 ml IV PUSH PRN (17:50)
[2023-11-11] MEDS: LORazepam 2 mg VIAL 1 ml IV PUSH PRN (18:30)
[2023-11-12] MEDS ORDERED: Acetaminophen IV 1 GM/100ML 1,000 MG/100 ML BAG IV PRN (09:33)
[2023-11-12] MEDS: Morphine 4 MG/ML VIAL (1 ml) IV ONE (10:52)
[2023-11-12] MEDS: Morphine 10 MG/ML VIAL (1 mL) 100 MG in NS 0.9% 100 ml BAG 90 ML IV SCH (10:53)
[2023-11-12 18:25] VITALS: BP 38/27
[2023-11-13] MEDS ORDERED: Ondansetron 4 mg VIAL 2 MG/ML 2 ml VIAL IV PRN (13:04)
== END 2023-11-13 13:50 | disposition expired | DRG 871 ==
LOC: ED 01:01 → EDHOLD 08:48 → ICU 09:18 → MED 11-12 16:09
PROVIDERS: ADMIT Student in an Organized Health Care Education/Training Program; ATTEND Internal Medicine